=== PATIENT | male | born 1985 | race Caucasian/White ===

== ENCOUNTER 2022-03-29 12:37 | Emergency (ER) | payer OTHER, SELFPAY ==
[2022-03-29 12:55] VITALS: BP 158/104; PULSE 88; RESP 16; TEMP 36.8; O2SAT 100
[2022-03-29 12:56] VITALS: BP 158/104; PULSE 88; RESP 16; TEMP 36.8; O2SAT 100
--- NOTE | 2022-03-29 13:21 | ED.WOUNDLAC ---
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 Patient reports that his tetanus is not up to date. Patient has 1cm laceration to russo side of distal thumb region, bleeding is controlled. Patient reports some pain to site, denies any tingling or numbness to his left thumb, full mobility of thumb is present. Onset (ago): hour(s) Location: other (left thumb) Patient tetanus UTD: No Treatments prior to arrival: bandage Related Data Allergies Allergy/AdvReac Type Severity Reaction Status Date / Time tramadol Allergy Seizure Verified 03/29/22 12:55 Review of Systems Review of Systems: CONSTITUTIONAL: Denies fever, chills, or sweats. EYES: Denies visual changes, redness, or discharge. ENT: Denies rhinorrhea, congestion, sore throat, or otalgia. CARDIOVASCULAR: Denies chest pain, palpitations, or edema. RESPIRATORY: Denies cough or dyspnea. GASTROINTESTINAL: Denies abdominal pain, nausea, vomiting, or diarrhea. GENITOURINARY: Denies dysuria or hematuria. SKIN: Denies rash or itching,positive for laceration to distal russo aspect of left thumb, bleeding controlled. MUSCULOSKELETAL: Denies back pain, joint pain, or myalgia. NEUROLOGIC: Denies headache, numbness, or weakness. PSYCHIATRIC: Denies anxiety positive for history of depression. All systems reviewed & are unremarkable except as noted in HPI and below PMFSH Past Medical History Medical History (Updated 03/30/22 @ 00:00 by Anastacia Omer) Celiac disease Depression Kidney stones Surgical History Surgical History (Updated 03/29/22 @ 14:47 by Eryn Chakraborty NP) H/O lithotripsy H/O Spinal surgery 4 previous spinal surgery History of lung surgery partial left lung removed Social History Social History (Updated 03/29/22 @ 14:45 by Eryn L. Palmer, PMP) Tobacco type: e-cigarettes/vaping Additional smoking assessment comments: previous cigarette smoker quit 5 years ago presently vapes Alcohol intake: unknown Substance use: unknown Living arrangements: with family Gender identity (if verbalized by the patient): Male Comments At time of signature, agree with nursing past medical, surgical, social and family history. There is no relevant family history pertinent to the presenting complaint Exam Narrative: GENERAL: Well-appearing, well-nourished, and in no acute distress. HEAD: Normocephalic, atraumatic. NECK: Supple no lymphadenopathy CHEST: Clear to auscultation. No respiratory distress.SAO2 100% on room air HEART: Regular rate and rhythm. No murmur heard. Normal peripheral pulses. EXTREMITIES: Normal range of motion. No edema. SKIN: Warm, dry, no rash. Laceration to left russo distal aspect of his thumb 1cm linear see procedure. NEURO: No focal deficits. Alert and oriented x3. Course Course Level of Care: Express Care Visit Vital Signs Vital signs: Vital Signs Temperature 36.8 C 03/29/22 12:55 Pulse Rate 88 03/29/22 12:55 Respiratory Rate 16 03/29/22 12:55 Blood Pressure 158/104 H 03/29/22 12:55 Pulse Oximetry 100 03/29/22 12:55 Oxygen Delivery Room Air 03/29/22 12:55 Temperature 36.8 C 03/29/22 12:56 Pulse Rate 88 03/29/22 12:56 Respiratory Rate 16 03/29/22 12:56 Blood Pressure 158/104 H 03/29/22 12:56 Pulse Oximetry 100 03/29/22 12:56 Oxygen Delivery Room Air 03/29/22 12:56 Procedures Laceration left thumb: Date: 03/29/22 Time: 13:25 Site: hand (thumb) Side (If applicable): left Size (cm): 1
--- NOTE | 2022-03-29 13:36 | PC.NURSE ---
1336--BOOSTRIX INJECTION GIVEN TO PATIENT. MEDICATION WOULD NOT SCAN CORRECTLY. FRANKLIN [place] RN WITNESSED CORRECT MEDICATION GIVEN
== END 2022-03-29 14:22 | disposition home or self-care (01) ==
PROVIDERS: Emergency Provider Registered Nurse
DX: S61.012A Laceration without foreign body of left thumb without damage to nail, initial encounter (principal); W27.8XXA Contact with other nonpowered hand tool, initial encounter; Y93.G1 Activity, food preparation and clean up; Y99.0 Civilian activity done for income or pay; F17.290 Nicotine dependence, other tobacco product, uncomplicated; Z90.2 Acquired absence of lung [part of]; K90.0 Celiac disease
CPT/HCPCS: 12001; 90471; 90715; 99213; G0463

== ENCOUNTER 2022-04-09 09:48 | Emergency (ER) | payer OTHER, SELFPAY ==
--- NOTE | 2022-04-09 09:49 | ED.SKABFB ---
HPI - Skin/Abscess/Foreign Bdy General Chief complaint: Wound/Laceration Stated complaint: Suture Removal/WC Time Seen by Provider: 04/09/22 09:50 Source: patient and RN notes reviewed History of Present Illness HPI narrative: Patient is a 36-year-old male who presents the urgent care needing sutures removed from the left thumb. Patient had them placed here on March 29, 2022 after cutting it on a slicer at work. Patient states that he had 5 sutures placed. Patient also completed a course of Keflex. Denies any pain, drainage or redness to the area. No other acute complaints. No acute distress noted. Patient aware of the plan of care. Some parts of this dictation were generated by voice recognition software and may contain typographical and/or grammatical inaccuracies. Related Data Home Medications Medication Instructions Recorded Confirmed No Home Medications 04/09/22 04/09/22 Allergies Allergy/AdvReac Type Severity Reaction Status Date / Time tramadol Allergy Seizure Verified 04/09/22 10:04 Review of Systems Review of Systems: CONSTITUTIONAL: Denies fever, chills, or sweats. EYES: Denies visual changes, redness, or discharge. ENT: Denies rhinorrhea, congestion, sore throat, or otalgia. CARDIOVASCULAR: Denies chest pain, palpitations, or edema. RESPIRATORY: Denies cough or dyspnea. GASTROINTESTINAL: Denies abdominal pain, nausea, vomiting, or diarrhea. GENITOURINARY: Denies dysuria or hematuria. SKIN: Reports of 5 sutures needing to be removed from the left thumb MUSCULOSKELETAL: Denies back pain, joint pain, or myalgia. NEUROLOGIC: Denies headache, numbness, or weakness. All other systems reviewed are negative, except as documented in HPI. [facility] Past Medical History Medical History (Updated 04/09/22 @ 10:10 by JIA Mondragon) Celiac disease Depression Kidney stones Surgical History Surgical History (Updated 03/29/22 @ 14:47 by Eryn Chakraborty NP) H/O lithotripsy H/O Spinal surgery 4 previous spinal surgery History of lung surgery partial left lung removed Social History Social History (Updated 03/29/22 @ 14:45 by Eryn Chakraborty NP) Tobacco type: e-cigarettes/vaping Additional smoking assessment comments: previous cigarette smoker quit 5 years ago presently vapes Alcohol intake: unknown Substance use: unknown Gender identity (if verbalized by the patient): Male Comments At the time of my signature, I reviewed and agree with the nursing past medical, surgical, social, and family history. There is no relevant family history pertinent to the patient complaint. Exam Narrative: GENERAL: This is a well-nourished, well-developed patient, in no apparent distress. HEAD: normocephalic, atraumatic. EYES: PERRL. Sclera clear/white. Vision is grossly intact. EARS: External ears normal NOSE: External nose normal with no obvious nasal discharge, nares without redness, no rhinorrhea. THROAT: Mucous membranes moist NECK: Neck supple SKIN: Approximated not cellulitic, healed laceration to the left thumb with 5 sutures noted NEURO: awake, alert, and oriented to person, place and time. There were no obvious focal neurologic abnormalities. EXTREMITIES: No clubbing, cyanosis, or edema. Course Course Level of Care: Express Care Visit Vital Signs Vital signs: Vital Signs Temperature 98.4 F 04/09/22 09:55 Pulse Rate 84 04/09/22 09:55 Respiratory Rate 16 04/09/22 09:55 Blood Pressure 161/108 H 04/09/22 09:55 Pulse Oximetry 100 04/09/22 09:55 Oxygen Delivery Room Air 04/09/22 09:55 Temperature 98.4 F 04/09/22 09:55 Pulse Rate 84 04/09/22 09:55 Respiratory Rate 16 04/09/22 09:55 Blood Pressure 161/108 H 04/09/22 09:55 Pulse Oximetry 100 04/09/22 09:55 Oxygen Delivery Room Air 04/09/22 09:55 Reviewed-patient is informed that they may have pre-hypertension or hypertension based on a blood pressure reading in the department. I recommend th
[2022-04-09 09:55] VITALS: BP 161/108; PULSE 84; RESP 16; TEMP 36.9; O2SAT 100
[2022-04-09 10:10] VITALS: BP 150/90
== END 2022-04-09 10:10 | disposition home or self-care (01) ==
PROVIDERS: Emergency Provider Nurse Practitioner Family
DX: S61.012D Laceration without foreign body of left thumb without damage to nail, subsequent encounter (principal); W45.8XXD Other foreign body or object entering through skin, subsequent encounter; F17.290 Nicotine dependence, other tobacco product, uncomplicated
CPT/HCPCS: 99211; G0463

== ENCOUNTER 2022-04-22 17:32 | Emergency (ER) | payer SELFPAY ==
--- NOTE | ~2022-04-22 | XR_ITS ---
EXAMINATION: XR chest 2V Exam Date/Time: 04/22/2022 17:54 CDT HISTORY: COUGH/CONGESTION X 1 WK. DIMINISHD ON RT LUNG. Comparison: None available. RESULT: Lines, tubes, and devices: None. Lungs and pleura: Clear. Cardiomediastinal silhouette: Unremarkable. Other: No acute osseous or upper abdominal finding. IMPRESSION: No acute cardiopulmonary process. Reviewed, dictated and finalized at location K.
--- NOTE | 2022-04-22 17:36 | ED.URI ---
HPI - URI/Sore Throat General Chief Complaint: Upper Respiratory Infection Stated Complaint: chest congestion Time Seen by Provider: 04/22/22 17:36 Source: patient and RN notes reviewed History of Present Illness HPI Narrative: patient is a 37-year-old male who presents to the Urgent Care with complaints of chest congestion, cough and intermittent shortness of breath. Patient states he does have a history of asthma but has not had a refill of his inhaler since he moved to the area. Patient states symptoms have been ongoing for the past week and he has had intermittent fevers. Patient has been using Mucinex. Patient states that he had a lung condition last year and was hospitalized with a chest tube and left lung lobectomy No other acute complaints. No acute distress noted. Patient aware of the plan of care. Some parts of this dictation were generated by voice recognition software and may contain typographical and/or grammatical inaccuracies. Related Data Allergies Allergy/AdvReac Type Severity Reaction Status Date / Time tramadol Allergy Seizure Verified 04/22/22 17:48 Review of Systems Review of Systems: CONSTITUTIONAL: Denies fever, chills, or sweats. EYES: Denies visual changes, redness, or discharge. ENT: Denies rhinorrhea, congestion, sore throat, or otalgia. CARDIOVASCULAR: Denies chest pain, palpitations, or edema. RESPIRATORY: reports of cough, chest congestion and intermittent dyspnea. GASTROINTESTINAL: Denies abdominal pain, nausea, vomiting, or diarrhea. GENITOURINARY: Denies dysuria or hematuria. SKIN: Denies rash or itching. MUSCULOSKELETAL: Denies back pain, joint pain, or myalgia. NEUROLOGIC: Denies headache, numbness, or weakness. All other systems reviewed are negative, except as documented in HPI. [facility] Past Medical History Medical History (Updated 04/22/22 @ 18:44 by JIA Mondragon) Celiac disease Depression Kidney stones Surgical History Surgical History (Updated 03/29/22 @ 14:47 by Eryn Chakraborty NP) H/O lithotripsy H/O Spinal surgery 4 previous spinal surgery History of lung surgery partial left lung removed Social History Social History (Updated 03/29/22 @ 14:45 by Eryn Chakraborty NP) Tobacco type: e-cigarettes/vaping Additional smoking assessment comments: previous cigarette smoker quit 5 years ago presently vapes Alcohol intake: unknown Substance use: unknown Gender identity (if verbalized by the patient): Male Comments At the time of my signature, I reviewed and agree with the nursing past medical, surgical, social, and family history. There is no relevant family history pertinent to the patient complaint. Exam Narrative: GENERAL: This is a well-nourished, well-developed patient, in no apparent distress. HEAD: normocephalic, atraumatic. EYES: PERRL. Sclera clear/white. Vision is grossly intact. EARS: External ears normal, auditory canals clear and without drainage, TMs normal without perforation. Hearing grossly intact. NOSE: External nose normal with no obvious nasal discharge, nares without redness, no rhinorrhea. THROAT: Mucous membranes moist, posterior pharynx clear. moderate postnasal drainage NECK: Neck supple, non-tender without lymphadenopathy CARDIOVASCULAR: Regular rate and rhythm RESPIRATORY: diminished right lower lobe SKIN: warm, intact with no suspicious lesions or rash, good texture and turgor. NEURO: awake, alert, and oriented to person, place and time. There were no obvious focal neurologic abnormalities. EXTREMITIES: No clubbing, cyanosis, or edema. Course Course Level of Care: Express Care Visit Vital Signs Vital signs: Vital Signs Temperature 98.8 F 04/22/22 17:38 Pulse Rate 76 04/22/22 17:38 Respiratory Rate 20 04/22/22 17:38 Blood Pressure 146/99 H 04/22/22 17:38 Pulse Oximetry 99 04/22/22 17:38 Oxygen Delivery Room Air 04/22/22 17:38 Temperature 98.8 F 04/22/22 17:38 Pulse Rate 76
[2022-04-22 17:38] VITALS: BP 146/99; PULSE 76; RESP 20; TEMP 37.1; O2SAT 99
== END 2022-04-22 19:00 | disposition home or self-care (01) ==
PROVIDERS: Emergency Provider Nurse Practitioner Family
DX: J40 Bronchitis, not specified as acute or chronic (principal); F17.290 Nicotine dependence, other tobacco product, uncomplicated; K90.0 Celiac disease; J45.909 Unspecified asthma, uncomplicated
CPT/HCPCS: 71046; 99213; G0463